=== PATIENT | female | born 1950 | race Two or more races ===

== ENCOUNTER 2022-09-24 05:20 | Day surgery (SDC) | payer OTHER ==
[2022-09-23 16:39] VITALS: BMI 24.0
[2022-09-24] MEDS ORDERED: ISOSULFAN BLUE 50 MG/5 ML VIAL SQ ONE (09:59)
[2022-09-24] MEDS ORDERED: LIDOCAINE HCL 1%, 10 MG/ML (10ML VIAL) MDV ONE (09:59)
[2022-09-24] MEDS ORDERED: PROPOFOL 20 ML ONE (10:07)
[2022-09-24] MEDS ORDERED: MIDAZOLAM HCL 2 MG/2 ML SINGLE DOSE VIAL ONE (10:07)
[2022-09-24 10:48] LABS: BASO % 1.1 % (0-2.0); EOS % 0.3 % (0-4.5); HEMATOCRIT 41.7 % (32.4-45.2); HEMOGLOBIN 12.8 GM/dL (10.7-15.3); LYMPH % 25.3 % (8-40); MCH 23.2 pg (25.7-33.7); MCHC 30.8 g/dl (32.0-36.0); MEAN CELL VOLUME 75.2 fl (80-96); MEAN PLT VOLUME 8.5 fl (7.5-11.1); NEUT % 69.3 % (42.8-82.8); PLATELET COUNT 226 10^3/uL (134-434); RBC 5.54 M/mm3 (3.60-5.2); RDW 13.6 % (11.6-15.6); WHITE BLOOD COUNT 6.7 K/mm3 (4.0-10.0)
[2022-09-24] MEDS ORDERED: ceFAZolin SODIUM 1 GM VIAL IVPB ONE (10:56)
[2022-09-24] MEDS ORDERED: ACETAMINOPHEN INJECTION 100 ML IVPB ONE (10:58)
[2022-09-24] MEDS ORDERED: HYDROmorphone HCl 2 MG/ML VIAL ONE (11:00)
[2022-09-24] MEDS ORDERED: hydrALAZINE HCL 20 MG/ML VIAL ONE (11:09)
[2022-09-24] MEDS ORDERED: SUGAMMADEX SODIUM 200 MG/2 ML VIAL ONE (12:02)
[2022-09-24] MEDS ORDERED: ACETAMINOPHEN 500 MG TABLET (FP) PO PRN (12:30)
[2022-09-24] MEDS ORDERED: ONDANSETRON 4 MG/2 ML VIAL IVPB PRN (12:30)
[2022-09-24] MEDS ORDERED: LACTATED RINGERS SOLUTION 1,000 ML/1,000 ML INFUS.BAG IV SCH (12:30)
[2022-09-24] MEDS ORDERED: HYDROmorphone *PCA* 10MG/50ML DISP.SYRIN PCA SCH (12:45)
[2022-09-24] MEDS ORDERED: NITROGLYCERIN 2% OINTMENT - 1GM PACKET TD ONE ×2 (12:53→12:55)
[2022-09-24] MEDS ORDERED: LACTATED RINGERS SOLUTION 1,000 ML IV SCH (13:30)
[2022-09-24] MEDS ORDERED: oxyCODONE HCL 5 MG TABLET PO PRN (16:30)
[2022-09-24] MEDS ORDERED: ACETAMINOPHEN 325 MG TABLET (FP) PO PRN (16:30)
[2022-09-24] MEDS ORDERED: MEPERIDINE HCL 25 MG/ML VIAL IM PRN (16:42)
[2022-09-24] MEDS ORDERED: NITROGLYCERIN 2% OINTMENT - 1GM PACKET TD SCH (18:30)
[2022-09-24] MEDS: CEFAZOLIN 1 GM in DEXTROSE 5%-WATER - 50 ML IVPB SCH (18:35)
[2022-09-24] MEDS: NITROGLYCERIN 2% OINTMENT - 1GM PACKET TD SCH (18:48)
[2022-09-25] MEDS: NITROGLYCERIN 2% OINTMENT - 1GM PACKET TD SCH ×3 (00:45→12:20)
[2022-09-25] MEDS: CEFAZOLIN 1 GM in DEXTROSE 5%-WATER - 50 ML IVPB SCH ×2 (02:05→09:33)
[2022-09-25 10:38] VITALS: RESP 20; TEMP 98.3
[2022-09-25 14:02] VITALS: BP 140/72; PULSE 75
== END 2022-09-25 16:57 | disposition home or self-care (01) ==
LOC: JASUSAT 05:20 → EDSTATUS 08:30 → J6S 16:19 → JASUSAT 09-25 16:57
PROVIDERS: ATTEND Surgery
PROC: 0HTT0ZZ Resection of Right Breast, Open Approach (ICD-10-PCS; principal; 2022-09-24 09:00)
PROC: 0HRT0JZ Replacement of Right Breast with Synthetic Substitute, Open Approach (ICD-10-PCS; 2022-09-24 09:00)
PROC: 0HHT0NZ Insertion of Tissue Expander into Right Breast, Open Approach (ICD-10-PCS; 2022-09-24 09:00)
DX: C50.411 Malignant neoplasm of upper-outer quadrant of right female breast (principal); C77.3 Secondary and unspecified malignant neoplasm of axilla and upper limb lymph nodes
CPT/HCPCS: 36415; 78195-TC; 85025; 86850; 86900; 86901; 88307-TC; 88331-TC; 88332; 88341-TC; 94010; 94760; 97116-GP; 97162-GP; A9541; Q4116

== ENCOUNTER 2022-10-30 16:24 | Day surgery (SDC) | payer OTHER ==
[2022-10-30 16:40] VITALS: BMI 24.8
[2022-10-30 18:10] LABS: BASO % 0.5 % (0-2.0); EOS % 0.6 % (0-4.5); HEMATOCRIT 37.7 % (32.4-45.2); HEMOGLOBIN 12.1 GM/dL (10.7-15.3); LYMPH % 19.8 % (8-40); MCH 22.8 pg (25.7-33.7); MEAN CELL VOLUME 71.2 fl (80-96); MEAN PLT VOLUME 7.9 fl (7.5-11.1); MONO % 9.9 % (3.8-10.2); NEUT % 69.2 % (42.8-82.8); PLATELET COUNT 261 10^3/uL (134-434); RDW 14.4 % (11.6-15.6); WHITE BLOOD COUNT 9.1 K/mm3 (4.0-10.0)
[2022-10-30 18:26] LABS: CHLORIDE 104 mmol/L (98-107); SODIUM 137 mmol/L (136-145)
[2022-10-30 18:28] LABS: ALBUMIN 3.3 g/dl (3.4-5.0); CALCIUM 9.2 mg/dL (8.5-10.1); CO2 30 mmol/L (21-32); GLUCOSE,RANDOM 89 mg/dL (74-106)
[2022-10-30 18:31] LABS: CREATININE 0.9 mg/dL (0.55-1.3); SGOT/AST 74 U/L (15-37); SGPT/ALT 34 U/L (13-61)
[2022-10-30 18:33] LABS: BILIRUBIN,TOTAL 0.9 mg/dL (0.2-1); TOT PROT 8.4 g/dl (6.4-8.2)
[2022-10-30 18:34] LABS: ALK PHOS 98 U/L (45-117)
[2022-10-30 18:35] LABS: ANION GAP 3 MMOL/L (8-16); POTASSIUM 6.5 mmol/L (3.5-5.1)
[2022-10-30] MEDS ORDERED: PROPOFOL 40 ML ONE (18:41)
[2022-10-30 19:37] LABS: POTASSIUM 4.2 mmol/L (3.5-5.1)
[2022-10-30 19:40] LABS: CALCIUM 9.4 mg/dL (8.5-10.1)
[2022-10-30 19:41] LABS: BLOOD UREA NITROGEN 12.1 mg/dL (7-18)
[2022-10-30 19:43] LABS: INR 1.24 (0.83-1.09); PROTHROMBIN TIME (PATIENT) 14.3 SEC (9.7-13.0)
[2022-10-30 19:44] LABS: CREATININE 0.8 mg/dL (0.55-1.3)
[2022-10-30 19:45] LABS: ACTIVATED PTT 30.4 SECONDS (25.2-36.5)
[2022-10-30] MEDS ORDERED: ONDANSETRON 4 MG/2 ML VIAL ONE (19:48)
[2022-10-30] MEDS ORDERED: DEXAMETHASONE SOD PHOSPHATE 4 MG/1 ML VIAL ONE (19:48)
[2022-10-30] MEDS ORDERED: LIDOCAINE HCL/PF 2% SDV 5ML VIAL ONE (19:48)
[2022-10-30] MEDS ORDERED: MIDAZOLAM HCL 2 MG/2 ML SINGLE DOSE VIAL ONE (19:49)
[2022-10-30] MEDS ORDERED: ROCURONIUM BROMIDE 50 MG/5 ML SYRINGE ONE (19:49)
[2022-10-30] MEDS ORDERED: ceFAZolin SODIUM 1 GM VIAL ONE (19:52)
[2022-10-30] MEDS ORDERED: KETOROLAC TROMETHAMINE 30 MG/1 ML VIAL ONE (19:57)
[2022-10-30] MEDS ORDERED: ceFAZolin SODIUM 1 GM VIAL IVPB ONE (20:10)
[2022-10-30] MEDS ORDERED: SEVOFLURANE 250 ML BTL ONE (20:34)
[2022-10-30] MEDS ORDERED: oxyCODONE HCL 5 MG TABLET PO PRN ×2 (20:50)
[2022-10-30] MEDS ORDERED: ONDANSETRON 4 MG/2 ML VIAL IVPUSH PRN (20:50)
[2022-10-30] MEDS ORDERED: PROMETHAZINE HCL 25 MG/1 ML VIAL IVPB PRN (20:50)
[2022-10-30] MEDS ORDERED: ACETAMINOPHEN 1000 MG/100 ML BAG IVPB PRN (20:51)
[2022-10-30] MEDS ORDERED: LACTATED RINGERS SOLUTION 1,000 ML IV SCH (21:00)
[2022-10-30] MEDS: CEFAZOLIN 1 GM in DEXTROSE 5%-WATER - 50 ML IVPB SCH (23:21)
[2022-10-31] MEDS ORDERED: ceFAZolin SODIUM 1 GM VIAL ONE (01:51)
[2022-10-31] MEDS: CEFAZOLIN 1 GM in DEXTROSE 5%-WATER - 50 ML IVPB SCH ×2 (02:01→09:44)
[2022-10-31] MEDS ORDERED: ACETAMINOPHEN 1000 MG/100 ML BAG IVPB PRN (04:00)
[2022-10-31 05:25] VITALS: RESP 17
[2022-10-31 12:32] VITALS: BP 131/74; PULSE 76; TEMP 97.9
== END 2022-10-31 12:25 | disposition home or self-care (01) ==
LOC: JER 16:24 → JASUSAT 18:12 → J8W 22:04 → JASUSAT 10-31 12:25
PROVIDERS: ATTEND Plastic Surgery
PROC: 0JB60ZZ Excision of Chest Subcutaneous Tissue and Fascia, Open Approach (ICD-10-PCS; 2022-10-30)
PROC: 0HPT0NZ Removal of Tissue Expander from Right Breast, Open Approach (ICD-10-PCS; principal; 2022-10-30 19:00)
DX: L76.82 Other postprocedural complications of skin and subcutaneous tissue (principal); N64.89 Other specified disorders of breast; Z85.3 Personal history of malignant neoplasm of breast; Z90.11 Acquired absence of right breast and nipple
CPT/HCPCS: 36415; 80048; 80053; 85025; 85610; 85730; 86850; 86900; 86901; 87070; 87205; 93005; 93010; 94760; 99285-25

== ENCOUNTER 2022-12-16 09:20 | Day surgery (SDC) | payer OTHER ==
[2022-12-13 13:38] VITALS: BMI 34.2
[2022-12-16] MEDS ORDERED: LIDOCAINE HCL/PF 2% SDV 5ML VIAL ONE (11:48)
[2022-12-16] MEDS ORDERED: MIDAZOLAM HCL 2 MG/2 ML SINGLE DOSE VIAL ONE (11:49)
[2022-12-16] MEDS ORDERED: PROPOFOL 20 ML ONE (11:49)
[2022-12-16] MEDS ORDERED: SUCCINYLCHOLINE CHLORIDE 200 MG/10 ML SYRINGE ONE (11:49)
[2022-12-16] MEDS ORDERED: ONDANSETRON 4 MG/2 ML VIAL ONE (12:34)
[2022-12-16] MEDS ORDERED: DEXAMETHASONE SOD PHOSPHATE 4 MG/1 ML VIAL ONE (12:34)
[2022-12-16] MEDS ORDERED: ceFAZolin SODIUM 1 GM VIAL ONE (12:34)
[2022-12-16] MEDS ORDERED: PROPOFOL 40 ML ONE (12:47)
[2022-12-16] MEDS ORDERED: SEVOFLURANE 250 ML BTL ONE ×2 (12:49)
[2022-12-16] MEDS ORDERED: ALBUTEROL SO4 HFA INHALER IH ONE (12:56)
[2022-12-16] MEDS ORDERED: ACETAMINOPHEN INJECTION 100 ML IVPB ONE (12:57)
[2022-12-16] MEDS ORDERED: BUPIVACAINE HCL/PF 0.5% (5MG/ML) 10 ML VIAL ONE (13:03)
[2022-12-16] MEDS ORDERED: BUPIVACAINE HCL/PF 2.5 MG/ML - 30 ML VIAL IJ ONE (13:03)
[2022-12-16] MEDS ORDERED: ONDANSETRON 4 MG/2 ML VIAL IVPUSH PRN (13:40)
[2022-12-16] MEDS ORDERED: PROMETHAZINE HCL 25 MG/1 ML VIAL IVPB PRN (13:40)
[2022-12-16] MEDS ORDERED: oxyCODONE HCL 5 MG TABLET PO PRN (13:40)
[2022-12-16] MEDS ORDERED: LACTATED RINGERS SOLUTION 1,000 ML IV SCH (13:45)
[2022-12-16 17:22] VITALS: TEMP 97
[2022-12-16 17:34] VITALS: BP 150/88; PULSE 77; RESP 16
== END 2022-12-16 15:20 | disposition home or self-care (01) ==
LOC: FASU 09:20
PROVIDERS: ATTEND Plastic Surgery
PROC: 0HBT0ZZ Excision of Right Breast, Open Approach (ICD-10-PCS; principal; 2022-12-16 12:46)
PROC: 0JB60ZZ Excision of Chest Subcutaneous Tissue and Fascia, Open Approach (ICD-10-PCS; 2022-12-16 12:46)
DX: T85.79XA Infection and inflammatory reaction due to other internal prosthetic devices, implants and grafts, initial encounter (principal); Y82.8 Other medical devices associated with adverse incidents; Y92.9 Unspecified place or not applicable
CPT/HCPCS: 88305-TC; 94760

== ENCOUNTER 2024-08-03 06:52 | Day surgery (SDC) | payer OTHER ==
[2024-08-02 10:47] VITALS: BMI 23.0
[2024-08-03] MEDS ORDERED: LIDOCAINE HCL 1%, 10 MG/ML (20ML VIAL) ONE (08:44)
[2024-08-03] MEDS ORDERED: LIDOCAINE HCL/PF 1% SDV 5ML VIAL ONE (08:45)
[2024-08-03] MEDS ORDERED: ETOMIDATE 20 MG/10 ML VIAL IVPUSH ONE (09:11)
[2024-08-03] MEDS: ceFAZolin SODIUM 1 GM VIAL IVPB ONE ×2 (09:27)
[2024-08-03] MEDS: LIDOCAINE HCL 1%, 10 MG/ML (20ML VIAL) NR ONE ×2 (09:33)
[2024-08-03] MEDS ORDERED: ACETAMINOPHEN INJECTION 100 ML ONE (10:24)
[2024-08-03] MEDS: ACETAMINOPHEN 1000 MG/100 ML BAG IVPB ONE (10:27)
[2024-08-03 11:36] VITALS: RESP 16
[2024-08-03 12:39] VITALS: BP 135/68; PULSE 54; TEMP 97.5
== END 2024-08-03 12:41 | disposition home or self-care (01) ==
LOC: JASU-SURG 06:52
PROVIDERS: ATTEND Surgery
PROC: 0HBT0ZZ Excision of Right Breast, Open Approach (ICD-10-PCS; principal; 2024-08-03 09:00)
DX: C50.911 Malignant neoplasm of unspecified site of right female breast (principal)
CPT/HCPCS: 88307-TC; 88342-TC; 94760; J0131